=== PATIENT | male | born 1970 | race Caucasian/White ===

== ENCOUNTER 2020-06-16 06:08 | Day surgery (SDC) | payer MEDICAID ==
[~2020-06-16 06:08] MED LIST: Acetaminophen 325 MG Tab PO SCH; Lactated Ringers 1,000 ML IV SCH; Lidocaine 1%/Sod Bicarbonate in NS 8.4% 1 ML Syringe IDERM PRN; Pregabalin 25 MG Cap PO SCH; Sodium Chloride 0.9% 10 ML Syringe FLUSH PRN; oxyCODONE ER 10 MG TAB.ER PO SCH
[2020-06-16] MEDS ORDERED: Dexamethasone 4 MG/ML 5 ML MDV ONE (06:33)
[2020-06-16] MEDS ORDERED: Propofol 200 MG/20 ML SDV ONE (06:33)
[2020-06-16] MEDS ORDERED: Ketamine 500 mg/10 ML MDV ONE (06:33)
[2020-06-16] MEDS ORDERED: Lidocaine 1% 4 ML ONE (06:33)
[2020-06-16] MEDS ORDERED: Ketorolac 15 MG/ML SDV ONE (06:33)
[2020-06-16] MEDS ORDERED: Ondansetron 4 MG/2 ML SDV ONE (06:33)
[2020-06-16] MEDS ORDERED: Midazolam 1 MG/ML 2 ML SDV ONE (06:33)
[2020-06-16] MEDS ORDERED: ceFAZolin 1 GM Vial ONE (06:37)
--- NOTE | 2020-06-16 06:53 | PCM.PREANE ---
Preanesthetic Assessment - Procedure Proposed Procedure: right total hip replacement - Anesthesia/Transfusion/Family Hx Anesthesia History: Prior Anesthesia Without Reaction Family History of Anesthesia Reaction: No - Review of Systems General: No Symptoms Pulmonary: Cough (Smoker 1/2 ppday, mostly in the mornings. ) Cardiovascular: No Symptoms Gastrointestinal: No Symptoms Neurological: No Symptoms Other: Reports: None (ETOH 3-4 beers per day. ) - Physical Assessment NPO Status Date: 06/15/20 NPO Status Time: 23:30 Vital Signs: Last Vital Signs Temp 36.5 C 06/16/20 06:15 Pulse 74 06/16/20 06:15 Resp 16 06/16/20 06:15 BP 115/76 06/16/20 06:15 Pulse Ox 97 06/16/20 06:15 Height: 1.85 m Weight: 69.4 kg ASA Class: 2 Mental Status: Alert & Oriented x3 Airway Class: Mallampati = 2 Dentition: Reports: Broken Tooth/Teeth, Missing Tooth/Teeth, Caries Thyro-Mental Finger Breadths: 2 Mouth Opening Finger Breadths: 3 ROM/Head Extension: Full Lungs: Clear to Auscultation, Normal Respiratory Effort Cardiovascular: Regular Rate, Regular Rhythm - Lab Values: Laboratory Last Values MRSA (PCR) Negative 06/01/20 14:33 - Allergies Allergies/Adverse Reactions: Allergies Allergy/AdvReac Type Severity Reaction Status Date / Time No Known Allergies Allergy Verified 06/15/20 15:08 - Anesthesia Plan Pre-Op Medication Ordered: Anxiolytic - Acknowledgements Anesthesia Type Planned: Spinal Pt an Appropriate Candidate for the Planned Anesthesia: Yes Alternatives and Risks of Anesthesia Discussed w Pt/Guardian: Yes Pt/Guardian Understands and Agrees with Anesthesia Plan: Yes PreAnesthesia Questionnaire HEENT History: Reports: None Cardiovascular History: Reports: None Respiratory History: Reports: None Gastrointestinal History: Reports: None Genitourinary History: Reports: None PREPARED FOODS ASSOCIATE History: Reports: None Musculoskeletal History: Reports: Osteoporosis Neurological History: Reports: None Psychiatric History: Reports: None Endocrine/Metabolic History: Reports: None Hematologic History: Reports: None Immunologic History: Reports: None Oncologic (Cancer) History: Reports: None Dermatologic History: Reports: None - Infectious Disease History Infectious Disease History: Reports: None - Past Surgical History Head Surgeries/Procedures: Reports: None HEENT Surgical History: Reports: None Cardiovascular Surgical History: Reports: None Respiratory Surgical History: Reports: None GI Surgical History: Reports: None Female Surgical History: Reports: None Male Surgical History: Reports: None Endocrine Surgical History: Reports: None Neurological Surgical History: Reports: None Musculoskeletal Surgical History: Reports: Other (See Below) Other Musculoskeletal Surgeries/Procedures:: fingery surgery Oncologic Surgical History: Reports: None Dermatological Surgical History: Reports: None - SUBSTANCE USE Tobacco Use Status *Q: Current Every Day Tobacco User Days Per Week of Alcohol Use: 7 Number of Drinks Per Day: 3 Total Drinks Per Week: 21 Recreational Drug Use History: No - HOME MEDS Home Medications: Home Meds Cholecalciferol (Vitamin D3) [Vitamin D3] 5,000 unit PO DAILY 06/15/20 [History] Cyclobenzaprine [Flexeril] 10 mg PO BID PRN #20 tab 06/16/20 [Rx] Rivaroxaban [Xarelto] 10 mg PO DAILY #35 tab 06/16/20 [Rx] oxyCODONE 5 - 10 mg PO Q4H PRN #40 tab 06/16/20 [Rx] - CURRENT (IN HOUSE) MEDS Current Meds: Current Medications Acetaminophen (Tylenol) 975 mg PO ONETIME KATHRYN Stop: 06/16/20 16:00 Last Admin: 06/16/20 06:17 Dose: 975 mg Documented by: Morphine Sulfate 8 mg/Epinephrine HCl 0.3 mg/Cefuroxime Sodium 750 mg/Ketorolac Tromethamine 30 mg/Sodium Chloride 7.9 ml 0 mg .XX ASDIRECTED PRN PRN Reason: Pain Stop: 06/16/20 18:00 Lactated Ringer's (Ringers, Lactated) 1,000 mls @ 125 mls/hr IV ASDIRECTED KATHRYN Stop: 06/16/20 23:00 Last Admin: 06/16/20 06:35 Dose: 125 mls/hr Documented by: Lidocaine/Sodium Bicarbonate (Buffered Lidocaine 1% In Ns 8.4%) 0.25 ml IDERM ONETIME PRN PRN Reason: Prior to IV Start Stop: 06/16/20 18:00 Last Admin: 06/16/20 06:34 Dose: 0.25 ml Documented by: Oxycodone HCl (Oxycontin) 10 mg PO ONETIME KATHRYN Stop: 06/16/20 16:00 Last Admin: 06/16/20 06:17 Dose: 10 mg Documented by: Pregabalin (Lyrica) 50 mg PO ONETIME KATHRYN Stop: 06/16/20 16:00 Last Admin: 06/16/20 06:17 Dose: 50 mg Documented by: Sodium Chloride (Saline Flush) 10 ml FLUSH ASDIRECTED PRN PRN Reason: Keep Vein Open Stop: 06/16/20 18:00 Discontinued Medications Bupivacaine HCl (Sensorcaine-Mpf 0.25%) Confirm Administered Dose 30 ml .ROUTE .STK-MED ONE Stop: 06/16/20 06:12 Cefazolin Sodium (Ancef) Confirm Administered Dose 2 gm .ROUTE .STK-MED ONE Stop: 06/16/20 06:38 Dexamethasone (Dexamethasone) Confirm Administered Dose 20 mg .ROUTE .STK-MED ONE Stop: 06/16/20 06:34 Lidocaine HCl (Xylocaine-Mpf 1%) Confirm Administered Dose 4 mls @ as directed .ROUTE .STK-MED ONE Stop: 06/16/20 06:34 Ketamine HCl (Ketalar) Confirm Administered Dose 500 mg .ROUTE .STK-MED ONE Stop: 06/16/20 06:34 Ketorolac Tromethamine (Toradol) Confirm Administered Dose 15 mg .ROUTE .STK-MED ONE Stop: 06/16/20 06:34 Midazolam HCl (Versed 1 Mg/Ml) Confirm Administered Dose 2 mg .ROUTE .STK-MED ONE Stop: 06/16/20 06:34 Ondansetron HCl (Zofran) Confirm Administered Dose 4 mg .ROUTE .STK-MED ONE Stop: 06/16/20 06:34 Propofol (Diprivan 20 Ml) Confirm Administered Dose 600 mg .ROUTE .STK-MED ONE Stop: 06/16/20 06:34 Tranexamic Acid (Cyklokapron) Confirm Administered Dose 1,000 mg .ROUTE .STK-MED ONE Stop: 06/16/20 06:12 Vancomycin HCl (Vancomycin) Confirm Administered Dose 1 gm .ROUTE .STK-MED ONE Stop: 06/16/20 06:12
[2020-06-16] MEDS: Bupivacaine 0.25% 10 ML SDV ONE ×2 (08:18→08:31)
[2020-06-16] MEDS: Morphine 8 MG, EPINEPHrine 0.3 MG, Cefuroxime 750 MG, Ketorolac 30 MG, Sodium Chloride ... PRN ×10 (08:19→08:30)
[2020-06-16] MEDS: Vancomycin 1 GM SDV ONE ×2 (08:19→08:33)
[2020-06-16] MEDS ORDERED: HYDROmorphone 0.5 MG/0.5 ML Syringe IVPUSH PRN (08:20)
[2020-06-16] MEDS ORDERED: fentaNYL 100 MCG/2 ML SDV IVPUSH PRN (08:20)
[2020-06-16] MEDS ORDERED: Ondansetron 4 MG/2 ML SDV IVPUSH PRN (08:20)
[2020-06-16] MEDS ORDERED: HYDROmorphone 0.5 MG/0.5 ML Syringe ONE (08:39)
[2020-06-16] MEDS ORDERED: Lactated Ringers 1,000 ML ONE (08:42)
--- NOTE | 2020-06-16 09:05 | PCM.POSTAN ---
POST ANESTHESIA ASSESSMENT - MENTAL STATUS Mental Status: Other (Drowsy) - VITAL SIGNS Vital Signs: Last Vital Signs Temp 36.5 C 06/16/20 06:15 Pulse 74 06/16/20 06:15 Resp 16 06/16/20 06:15 BP 115/76 06/16/20 06:15 Pulse Ox 97 06/16/20 06:15 0859 101/71 62 15 97F 94% - RESPIRATORY Respiratory Status: Respiratory Rate WNL, Airway Patent, O2 Saturation Stable, Supplemental Oxygen - CARDIOVASCULAR CV Status: Pulse Rate WNL, Blood Pressure Stable - GASTROINTESTINAL GI Status: No Symptoms - PAIN Pain Score: 0 - POST OP HYDRATION Hydration Status: Adequate & Stable
[2020-06-16] MEDS ORDERED: Cyclobenzaprine 10 MG Tab PO ONE (09:41)
[2020-06-16] MEDS ORDERED: oxyCODONE 5 MG Tab PO SCH (09:45)
--- NOTE | 2020-06-16 12:32 | PCM48HPAN ---
Post Anesthesia Note - EVALUATION WITHIN 48HRS OF ANESTHETIC Vital Signs in Normal Range: Yes Patient Participated in Evaluation: Yes Respiratory Function Stable: Yes Airway Patent: Yes Cardiovascular Function Stable: Yes Hydration Status Stable: Yes Pain Control Satisfactory: Yes Nausea and Vomiting Control Satisfactory: Yes Mental Status Recovered: Yes Vital Signs: Last Vital Signs Temp 36.3 C 06/16/20 10:01 Pulse 66 06/16/20 10:51 Resp 16 06/16/20 10:51 BP 116/84 06/16/20 10:51 Pulse Ox 96 06/16/20 10:51
--- NOTE | 2020-06-16 13:34 | CR ---
Pelvis and right hip: AP view of the pelvis was obtained as well as crosstable lateral view of the right hip. Comparison: No previous study is available. Findings: Recently placed right hip prosthesis is noted. Components are aligned. Soft tissue air is noted from the surgical procedure. Fairly severe joint space narrowing is noted within the left hip. Mild degenerative change is seen within the lumbar spine. Impression: 1. Satisfactory appearance of recently placed right hip prosthesis. 2. Degenerative change as noted above. Diagnostic code #2
--- NOTE | 2020-06-28 21:53 | PCM.OPNOTE ---
- General Post-Op/Procedure Note Date of Surgery/Procedure: 06/16/20 Operative Procedure(s): right total hip arthroplasty Pre Op Diagnosis: right hip osteoarthrosis Post-Op Diagnosis: Same Anesthesia Technique: Local, MAC, Spinal Primary Surgeon: Ollie Wang Anesthesia Provider: Berna Muller Solar Hot Water Installer: Marian Martinez Solar Hot Water Installer: Anne Marie Moran EBMarlo in mLs: 100 Complications: None Condition: Good Free Text/Narrative:: 56 cup 7 stem 28+4 MDM componenets
--- NOTE | 2020-06-29 16:03 | OR ---
DATE OF OPERATION: 06/16/2020 SURGEON: Ollie Wang MD OPERATION PERFORMED: Right total hip arthroplasty. PREOPERATIVE DIAGNOSIS: Right hip osteoarthrosis. POSTOPERATIVE DIAGNOSIS: Right hip osteoarthrosis. ANESTHESIA: Local MAC with spinal. ANESTHESIA PROVIDER: Jolie Greenfield. ENROLLMENT SPECIALIST: Marian Martinez PA-C, and Anne Marie Moran LPN. ESTIMATED BLOOD LOSS: 100 mL. COMPLICATIONS: None. CONDITION: Stable. IMPLANTS: 1. [place] size 56 mm Tritanium II acetabular cup. 2. [place] size 7 Accolade II stem. 3. [place] size 28 +4 MDM components with a size F liner. DESCRIPTION OF PROCEDURE: The patient was identified in the preoperative holding area. The proper site was marked and identified by the surgeon. The patient was taken back to the operative theater, where after adequate anesthesia, the patient was placed in a left lateral decubitus position. An axillary roll was placed. Pegs were then placed and well padded. The patient's gluteal fold was parallel to the floor. The right hip was then sterilely prepped and draped in the usual sterile fashion. An OR time-out was performed. The patient received 2 g IV Ancef. A standard posterior incision was made centered over the greater trochanter. This was taken down to the IT band and gluteal fascia, which was incised along the incisional length. The short external rotators were identified, and takedown of the short external rotators as well as capsulotomy was performed from the piriformis down to the lesser trochanter. The hip was then dislocated. A neck cut was completed and found to be adequate. Attention was turned to the acetabulum. Anterior and posterior acetabular retractors were then placed. Circumferential removal of the labrum as well as pulvinar was done at this time. Starting with a 50 reamer, I was able to ream up to a 56, which was found to have adequate purchase and a good bony bleeding bed. A 56 mm solid Tritanium II acetabular cup was impacted in the anatomic position for this patient. The MDM liner was then impacted into place, and attention was turned to the femur. A femoral elevator was placed by the lesser trochanter. A box chisel was used out laterally. A starter awl was placed down the canal. Starting with the 0 broach, I was able to broach it up to a size 7, which was found to be rotationally and vertically stable. At this time, MDM components with +0 were trialed. It was noted to be just a minor amount short but was stable throughout range of motion. We trialed a +4, and it was found to have adequate congregational of leg lengths and was stable throughout range of motion. The trial parts were then removed. The size 7 Accolade II stem was impacted into place, and 28 +4 MDM components were constructed on the back table and then impacted onto the stem. The hip was then relocated. A #5 Ethibond suture was used for closure of the short external rotators and capsule. 1 L of IrriSept irrigation was irrigated through the hip along with 1 L pulse lavage irrigation with Ancef. Topical tranexamic acid and vancomycin powder were applied. Periarticular injection was completed. A #2 barbed suture was used for closure of the IT band and gluteal fascia, 2-0 Vicryl was used subcutaneously, and Prineo was used for closure of skin. The patient tolerated the procedure well and was sent to the PACU in stable condition. MMODAL /[id number]
== END 2020-06-16 14:10 | disposition home or self-care (01) ==
LOC: JD.SDS 06:08
PROVIDERS: ATTEND Orthopaedic Surgery
DX: M16.11 Unilateral primary osteoarthritis, right hip (principal); F17.210 Nicotine dependence, cigarettes, uncomplicated; Z98.890 Other specified postprocedural states; Z79.899 Other long term (current) drug therapy
CPT/HCPCS: 27130; 36415; 73501; 85730; 86850; 86900; 86901; 87641; 97110; 97116; 97161; 97165; A9270; C1776; J0171; J0690; J0697; J1100; J1170; J1885; J2001; J2250; J2270; J2405; J2704; J3370; J3490; J7120; 01214

== ENCOUNTER 2023-02-05 19:38 | Emergency (ER) | payer SELFPAY | END 2023-02-05 23:22 | disposition home or self-care (01) | LOC: JD.ED 19:38 | DX: S93.402A Sprain of unspecified ligament of left ankle, initial encounter (principal); J44.9 Chronic obstructive pulmonary disease, unspecified; Z79.01 Long term (current) use of anticoagulants; Z72.0 Tobacco use; X50.1XXA Overexertion from prolonged static or awkward postures, initial encounter | CPT/HCPCS: 73590-26-LT; 73590-LT; 73610-26-LT; 73610-LT; 93971-26-LT; 93971-LT; 99283; 99284 ==

== ENCOUNTER 2023-09-04 11:51 | Emergency (ER) | payer MEDICAID ==
[2023-09-04] MEDS: methylPREDNISolone Sodium Succinate 125 MG/2 ML SDV IVPUSH ONE (12:48)
[2023-09-04] MEDS: Metoclopramide 10 MG/2 ML SDV IVPUSH ONE (12:49)
[2023-09-04] MEDS: Ketorolac 30 MG/ML SDV IVPUSH ONE (12:51)
[2023-09-04] MEDS: HYDROmorphone 1 MG/ML Syringe IVPUSH ONE ×2 (12:53→15:14)
[2023-09-04] MEDS: Dextrose 5%-Lactated Ringers 1,000 ML IV SCH (13:40)
== END 2023-09-04 17:05 | disposition home or self-care (01) ==
LOC: JD.ED 11:51
DX: M51.16 Intervertebral disc disorders with radiculopathy, lumbar region (principal); J44.9 Chronic obstructive pulmonary disease, unspecified
CPT/HCPCS: 70250; 72148; 96361; 96374; 96375; 96376; 99284; J1170; J1885; J2765; J2930; J7121